=== PATIENT | male | born 1985 | race African-American/Black ===

== ENCOUNTER 2017-07-20 13:26 | Emergency (ER) | payer MEDICAID ==
[~2017-07-20] VITALS: Ht 193 cm; Wt 78.0 kg
[2017-07-20 13:50] VITALS: BP 121/72
[2017-07-20] MEDS ORDERED: IPRATROPIUM BROMIDE (0.02%) 0.5MG/2.5ML NEB HHN STA (15:55)
[2017-07-20] MEDS ORDERED: ALBUTEROL (0.083%) 2.5MG/3ML NEB HHN STA (15:55)
== END 2017-07-20 17:14 | disposition home or self-care (01) ==
LOC: ER 13:31
DX: J45.901 Unspecified asthma with (acute) exacerbation (principal); G40.909 Epilepsy, unspecified, not intractable, without status epilepticus; I10 Essential (primary) hypertension; F41.0 Panic disorder [episodic paroxysmal anxiety]
CPT/HCPCS: 93005; 94640; 99283; J7611

== ENCOUNTER 2018-06-12 22:33 | Emergency (ER) | payer MEDICAID ==
[~2018-06-12] VITALS: Ht 188 cm; Wt 82.0 kg
[2018-06-12] MEDS ORDERED: LEVETIRACETAM 1000MG/100ML 100 ML IV ONE (23:15)
[2018-06-13 00:42] LABS: BASOPHILS % 0.8 % (0.0-2.0); EOSINOPHILS % 1.8 % (0.0-5.0); HEMATOCRIT. 40.9 % (42.0-52.0); HEMOGLOBIN. 14.1 g/dL (14.0-18.0); LYMPHOCYTES % 29.5 % (20.0-50.0); MEAN CORPUSCULAR VOLUME 90.3 fL (80.0-94.0); MEAN PLATELET VOLUME 8.7 fl (7.4-10.4); MONOCYTES % 7.3 % (2.0-8.0); NEUTROPHILS % 60.6 % (40.0-76.0); PLATELET 135 x1000/uL (130-400); RED BLOOD CELL COUNT 4.53 mill/uL (4.7-6.1); RED CELL DISTRIBUTION WIDTH 13.4 % (11.6-14.6)
[2018-06-13 00:46] LABS: CHLORIDE 106 mEq/L (98-107)
[2018-06-13 00:47] LABS: CLARITY URINE CLEAR (CLEAR); COLOR URINE YELLOW (YELLOW); KETONES URINE TRACE (NEGATIVE); LEUKOCYTE ESTERASE URINE 1+ (NEGATIVE); NITRITE URINE NEGATIVE (NEGATIVE); OCCULT BLOOD URINE NEGATIVE (NEGATIVE); PROTEIN URINE NEGATIVE (NEGATIVE); SPECIFIC GRAVITY URINE 1.024 (1.005-1.030)
[2018-06-13 00:51] LABS: ETHANOL BLOOD < 10 mg/dL
[2018-06-13 00:59] LABS: *BARBITURATES SCREEN URINE NEGATIVE (NEGATIVE); *BENZODIAZEPINES SCREEN URINE NEGATIVE (NEGATIVE); *COCAINE SCREEN URINE NEGATIVE (NEGATIVE); METHADONE URINE SCREEN NEGATIVE (NEGATIVE); OPIATES URINE SCREEN NEGATIVE (NEGATIVE)
[2018-06-13 01:00] LABS: *AMPHETAMINES SCREEN URINE NEGATIVE (NEGATIVE); CANNABINOID URINE SCREEN PRESUMTIVE POSITIVE (NEGATIVE); PHENCYCLIDINE URINE SCREEN NEGATIVE (NEGATIVE)
[2018-06-13] MEDS ORDERED: KETOROLAC 15MG/ML VIAL IV ONE (02:00)
[2018-06-13] MEDS ORDERED: CEFTRIAXONE SODIUM 250 MG/VIAL IM ONE (02:00)
[2018-06-13] MEDS ORDERED: METOCLOPRAMIDE HCL 10MG/2ML VIAL IV ONE (02:00)
[2018-06-13] MEDS ORDERED: AZITHROMYCIN 250 MG TABLET PO ONE (02:00)
[2018-06-13 02:39] VITALS: BP 107/68
== END 2018-06-13 02:37 | disposition home or self-care (01) ==
LOC: ER 22:33
DX: G40.909 Epilepsy, unspecified, not intractable, without status epilepticus (principal); Z21 Asymptomatic human immunodeficiency virus [HIV] infection status; I10 Essential (primary) hypertension; Z91.14 Patient's other noncompliance with medication regimen
CPT/HCPCS: 36415; 80053; 80305; 81003; 85025; 96365; 96372; 96375; 99283; G0482; J0696; J1885; J1953; J2765

== ENCOUNTER 2018-06-14 21:52 | Emergency (ER) | payer MEDICAID | END 2018-06-15 09:04 | disposition left against medical advice (07) | LOC: ER 21:52 | DX: Z53.21 Procedure and treatment not carried out due to patient leaving prior to being seen by health care provider (principal) ==

== ENCOUNTER 2018-07-17 11:23 | Emergency (ER) | payer MEDICAID ==
[~2018-07-17] VITALS: Ht 175.3 cm; Wt 85.0 kg
[2018-07-17 11:24] VITALS: BP 124/73
[2018-07-17] MEDS ORDERED: KEPPSOL GT (11:26)
== END 2018-07-17 17:04 | disposition left against medical advice (07) ==
LOC: ER 11:23
DX: G43.909 Migraine, unspecified, not intractable, without status migrainosus (principal); Z53.21 Procedure and treatment not carried out due to patient leaving prior to being seen by health care provider

== ENCOUNTER 2018-07-27 08:38 | Emergency (ER) | payer MEDICAID ==
[~2018-07-27 08:38] MED LIST: KEPPSOL GT
== END 2018-07-27 09:48 | disposition left against medical advice (07) ==
LOC: ER 08:44
DX: Z53.21 Procedure and treatment not carried out due to patient leaving prior to being seen by health care provider (principal)

== ENCOUNTER 2018-08-12 04:28 | Emergency (ER) | payer MEDICAID ==
[~2018-08-12] VITALS: Ht 182.9 cm; Wt 83.0 kg
[2018-08-12 04:29] VITALS: BP 130/92
== END 2018-08-12 11:25 | disposition left against medical advice (07) ==
LOC: ER 04:28
DX: Z53.21 Procedure and treatment not carried out due to patient leaving prior to being seen by health care provider (principal); J45.909 Unspecified asthma, uncomplicated; G43.909 Migraine, unspecified, not intractable, without status migrainosus; R56.9 Unspecified convulsions
CPT/HCPCS: 93005

== ENCOUNTER 2018-09-15 22:18 | Emergency (ER) | payer MEDICAID ==
[~2018-09-15] VITALS: Ht 190.5 cm; Wt 95.0 kg
[2018-09-15] MEDS ORDERED: KETOROLAC 30MG/ML VIAL IV STA (23:43)
[2018-09-15] MEDS ORDERED: SODIUM CHLORIDE 0.9% 1,000 ML IV ONE (23:43)
[2018-09-15] MEDS ORDERED: LEVETIRACETAM 500MG PREMIX 100 ML IV ONE (23:45)
[2018-09-16 00:10] LABS: CHLORIDE 105 mEq/L (98-107)
[2018-09-16 00:12] LABS: BASOPHILS % 1.1 % (0.0-2.0); HEMATOCRIT. 43.9 % (42.0-52.0); HEMOGLOBIN. 15.2 g/dL (14.0-18.0); LYMPHOCYTES % 31.2 % (20.0-50.0); MEAN CORPUSCULAR VOLUME 89.5 fL (80.0-94.0); MONOCYTES % 6.1 % (2.0-8.0); NEUTROPHILS % 60.6 % (40.0-76.0); PLATELET 137 x1000/uL (130-400); RED CELL DISTRIBUTION WIDTH 12.9 % (11.6-14.6)
[2018-09-16] MEDS ORDERED: DEXTROSE 50% WATER 50ML SYRINGE IV ONE (00:45)
[2018-09-16 03:07] VITALS: BP 102/53
== END 2018-09-16 03:08 | disposition home or self-care (01) ==
LOC: ER 22:18
DX: G40.909 Epilepsy, unspecified, not intractable, without status epilepticus (principal); E16.2 Hypoglycemia, unspecified; J45.909 Unspecified asthma, uncomplicated; G43.909 Migraine, unspecified, not intractable, without status migrainosus; B20 Human immunodeficiency virus [HIV] disease
CPT/HCPCS: 36415; 80053; 82962; 85025; 96365; 96375; 99283; J1885; J1953; J7030

== ENCOUNTER 2018-10-05 04:42 | Emergency (ER) | payer MEDICAID ==
[~2018-10-05] VITALS: Ht 185.4 cm; Wt 67.0 kg
[2018-10-05 05:40] LABS: BASOPHILS % 0.7 % (0.0-2.0); EOSINOPHILS % 1.9 % (0.0-5.0); HEMATOCRIT. 41.7 % (42.0-52.0); HEMOGLOBIN. 14.3 g/dL (14.0-18.0); LYMPHOCYTES % 40.3 % (20.0-50.0); MEAN CORPUSCULAR HEMOGLOBIN 30.9 pg (28.0-32.0); MEAN CORPUSCULAR VOLUME 89.9 fL (80.0-94.0); MEAN PLATELET VOLUME 8.8 fl (7.4-10.4); MONOCYTES % 8.1 % (2.0-8.0); PLATELET 137 x1000/uL (130-400); RED BLOOD CELL COUNT 4.63 mill/uL (4.7-6.1); RED CELL DISTRIBUTION WIDTH 13.5 % (11.6-14.6)
[2018-10-05 05:45] LABS: CHLORIDE 106 mEq/L (98-107)
[2018-10-05] MEDS ORDERED: SODIUM CHLORIDE 0.9% 1,000 ML IV ONE (06:29)
[2018-10-05] MEDS ORDERED: ALBUTEROL (0.083%) 2.5MG/3ML NEB HHN ONE (06:30)
[2018-10-05] MEDS ORDERED: LEVETIRACETAM 500MG PREMIX 100 ML IV ONE (06:30)
[2018-10-05] MEDS ORDERED: ACETAMINOPHEN 325MG TABLET PO STA (06:31)
[2018-10-05 09:03] LABS: CLARITY URINE CLEAR (CLEAR); COLOR URINE YELLOW (YELLOW); KETONES URINE NEGATIVE (NEGATIVE); LEUKOCYTE ESTERASE URINE 1+ (NEGATIVE); NITRITE URINE NEGATIVE (NEGATIVE); OCCULT BLOOD URINE NEGATIVE (NEGATIVE); PH URINE 7.5 (4.5-8.0); PROTEIN URINE NEGATIVE (NEGATIVE); UROBILINOGEN URINE 0.2 E.U./dL (0.2-1.0)
[2018-10-05 09:34] VITALS: BP 107/55
== END 2018-10-05 09:54 | disposition home or self-care (01) ==
LOC: ER 04:42
DX: G40.909 Epilepsy, unspecified, not intractable, without status epilepticus (principal); N39.0 Urinary tract infection, site not specified; R06.2 Wheezing; F41.9 Anxiety disorder, unspecified; F17.210 Nicotine dependence, cigarettes, uncomplicated; F12.10 Cannabis abuse, uncomplicated; J45.909 Unspecified asthma, uncomplicated; Z20.6 Contact with and (suspected) exposure to human immunodeficiency virus [HIV]
CPT/HCPCS: 36415; 71045; 80053; 81003; 85025; 94640; 96365; 99284; J1953; J7030; J7611

== ENCOUNTER 2020-08-23 15:30 | Emergency (ER) | payer MEDICAID ==
[~2020-08-23] VITALS: Ht 177.8 cm; Wt 70.0 kg
[2020-08-23] MEDS ORDERED: LEVETIRACETAM 1000MG PREMIX 100 ML IV ONE (15:45)
[2020-08-23 16:13] LABS: BASOPHILS % 0.7 % (0.0-2.0); EOSINOPHILS % 6.2 % (0.0-5.0); HEMATOCRIT. 43.4 % (42.0-52.0); HEMOGLOBIN. 14.6 g/dL (14.0-18.0); LYMPHOCYTES % 26.4 % (20.0-50.0); MEAN CORPUSCULAR HEMOGLOBIN 30.6 pg (28.0-32.0); MEAN CORPUSCULAR VOLUME 91.2 fL (80.0-94.0); MEAN PLATELET VOLUME 9.4 fl (7.4-10.4); MONOCYTES % 7.9 % (2.0-8.0); NEUTROPHILS % 58.8 % (40.0-76.0); PLATELET 110 x1000/uL (130-400); RED BLOOD CELL COUNT 4.76 mill/uL (4.7-6.1); RED CELL DISTRIBUTION WIDTH 13.1 % (11.6-14.6)
[2020-08-23 16:18] LABS: CHLORIDE 111 mEq/L (98-107)
[2020-08-23 16:22] LABS: ETHANOL BLOOD < 10 mg/dL
[2020-08-23 16:27] LABS: *AMPHETAMINES SCREEN URINE NEGATIVE (NEGATIVE); *BARBITURATES SCREEN URINE NEGATIVE (NEGATIVE); *BENZODIAZEPINES SCREEN URINE NEGATIVE (NEGATIVE); *COCAINE SCREEN URINE NEGATIVE (NEGATIVE); METHADONE URINE SCREEN NEGATIVE (NEGATIVE); OPIATES URINE SCREEN PRESUMTIVE POSITIVE (NEGATIVE)
[2020-08-23 16:28] LABS: CANNABINOID URINE SCREEN PRESUMTIVE POSITIVE (NEGATIVE); PHENCYCLIDINE URINE SCREEN NEGATIVE (NEGATIVE)
[2020-08-23] MEDS ORDERED: ACETAMINOPHEN 325MG TABLET PO ONE (16:45)
[2020-08-23 19:35] VITALS: BP 112/54
== END 2020-08-23 20:14 | disposition home or self-care (01) ==
LOC: ER 15:30
DX: R56.9 Unspecified convulsions (principal); S63.698A Other sprain of other finger, initial encounter; S83.8X1A Sprain of other specified parts of right knee, initial encounter; Z91.14 Patient's other noncompliance with medication regimen; X58.XXXA Exposure to other specified factors, initial encounter; Y93.9 Activity, unspecified; Y92.9 Unspecified place or not applicable; J45.909 Unspecified asthma, uncomplicated; B20 Human immunodeficiency virus [HIV] disease
CPT/HCPCS: 36415; 70450; 73130; 73562; 80053; 80305; 80320; 85025; 93005; 96365; 99285; J1953; L1830; G0480